=== PATIENT | male | born 1960 | race Caucasian/White ===

== ENCOUNTER 2019-01-07 10:19 | Emergency (ER) | payer OTHER ==
--- NOTE | 2019-01-07 10:23 | ERPHSYRPT ---
- History of Present Illness Time Seen by Provider: 01/07/19 10:20 Source: patient, family, old records Exam Limitations: no limitations Physician History: PT IS A 58 Y/O MALE HERE WITH C/O " I HAVE THIS LUMP IN MY THROAT AND I HAVE SPIT UP 4 CUPS OF SALIVA." PT REPORTS CHRONIC ESOPHAGEAL ISSUES REQUIRING DILATION AT [facility]. HE HAS HAD BARIUM SWALLOW STUDY RECENTLY. + WEIGHT LOSS 30 LBS OVER 1 YR. REPORTS HE FEELS LIKE HE HAS A LUMP IN HIS THROAT AND SALIVA HE JUST SWALLOWED COMES BACK UP. NO EXERTIONAL CP/SOB/N/V/FEVER/CHILLS/DYSURIA/ HEMATURIA. REPORTS CHRONIC ED LQ ABD PAIN THAT IS CRAMPY IN NATURE AND IS PRESENT "EVERY MORNING UNTIL I GO TO THE BATHROOM AND GET SOME FOOD INTO ME." REPORTS RECENT USE OF LAXATIVES "THAT BARIUM HAS ME STOPPED UP." NO HEMATOCHEZIA /DIARRHEA. REPORTS HX OF DIVERTICULITIS. NO DIAPHORESIS. NO EXACERBATING FACTORS PMHX: HIATAL HERNIA, ESOPHAGEAL ISSUES, DIVERTICULITIS PSHX HERNIA MEDS REVIEWED ALL DEMEROL +TOB DENIES ETOH./ILLICITS FHX NEG AORTA + HTN UNEMPLOYED Allergies/Adverse Reactions: meperidine HCl [From Demerol] Allergy (Verified 01/07/19 10:23) Home Medications: Fluticasone/Salmeterol [Advair 100-50 Diskus] 100 disk PO BID 05/31/15 [History] - Review of Systems Constitutional: No Symptoms, No Fever, No Chills, No Fatigue, No Lethargy, No Malaise, No Night Sweats, No Weakness, No Weight Loss Eyes: No Symptoms, No Discharge, No Eye Pain, No Eye Redness, No Itchy, No Photophobia, No Tearing, No Vision Changes, No Double Vision, No Foreign Body Sensation Ears, Nose, & Throat: No Symptoms, No Ear Pain, No Ear Discharge, No Hearing Changes, No Tinnitus, No Nose Congestion, No Nose Discharge, No Epistaxis, No Mouth Pain, No Mouth Swelling, No Throat Pain, No Throat Swelling, No Hoarse, No Painful Swallowing, No Stridor Respiratory: No Symptoms, No Cough, No Cyanosis, No Dyspnea, No Dyspnea on Exertion (BRIAN), No Stridor, No Wheezing Cardiac: No Symptoms, No Chest Pain, No Edema, No Palpitations, No Syncope, No Orthopnea Abdominal/Gastrointestinal: No Symptoms, Abdominal Pain, No Nausea, No Vomiting , No Diarrhea, No Constipation, No Hematemesis, No Hematochezia, No Melena, No Dysphagia, No Appetite Changes Genitourinary Symptoms: No Symptoms, No Dysuria, No Frequency, No Hematuria, No Hesitancy, No Incontinence, No Urgency, No Urinary Retention, No Flank Pain Musculoskeletal: No Symptoms, No Arthralgias, No Back Pain, No Neck Pain, No Deformity, No Fall, No Injury, No Joint Redness, No Joint Pain, No Joint Swelling, No Myalgias Skin: No Symptoms, No Cellulitis, No Decubiti, No Induration, No Pruritis, No Rash, No Skin Lesions, No Dryness Neurological: No Symptoms, No Dizziness, No Focal Weakness, No Gait Changes, No Headache, No Irritability, No Lethargy, No Paralysis, No Parasthesia, No Seizure , No Sensory Changes, No Speech Changes, No Tics, No Tremors, No Vertigo Psychological: No Symptoms, No Alcohol Abuse, No Drug Abuse, No Anxiety, No Depression, No Suicidal Ideations, No Homicidal Ideations, No Emotional Lability , No Hallucinations, No Memory Loss, No Mood Changes Endocrine: No Symptoms, No Polyuria, No Polydipsia, No Hair Changes, No Cold Intolerance, No Excessive Sweating, No Goiter Hematologic/Lymphatic: No Symptoms, No Anemia, No Blood Clots, No Easy Bleeding , No Gum Bleeding, No Easy Bruising, No Adenopathy Immunological/Allergic: No Symptoms All Other Systems: Reviewed and Negative - Past Medical History Pertinent Past Medical History: Yes Neurological History: No Pertinent History ENT History: No Pertinent History Cardiac History: No Pertinent History Respiratory History: Asthma Endocrine Medical History: No Pertinent History Musculoskeletal History: Fractures GI Medical History: Diverticulitis, Esophageal Disorder, Hernia, Polyps History: No Pertinent History Psycho-Social History: No Pertinent History Male Reproductive Disorders: No Pertinent History - Past Surgical History Past Surgical History: Yes Neuro Surgical History: No Pertinent History Cardiac: No Pertinent History Respiratory: No Pertinent History Gastrointestinal: Hernia Repair Genitourinary: No Pertinent History Musculoskeletal: Orthopedic Surgery Male Surgical History: No Pertinent History Other Surgical History: tear on colon repair, repair of shattered elbow lt, egd with dilatation - Social History Smoking Status: Former smoker How long have you smoked: 20 years Exposure to second hand smoke: Yes Drug Use: none - Nursing Vital Signs Nursing Vital Signs: Initial Vital Signs Temperature 98.6 F 01/07/19 10:29 Pulse Rate 68 01/07/19 10:29 Respiratory Rate 18 01/07/19 10:29 Blood Pressure 136/87 01/07/19 10:29 O2 Sat by Pulse Oximetry 98 01/07/19 10:29 Pain Scale Pain Intensity 0 - Physical Exam General Appearance: no apparent distress, mild distress, alert, other (ACTIVELY SPITTING) Eye Exam: PERRL/EOMI, eyes nml inspection, other (fundi normal ed), No scleral icterus, No pale conjunctivae, No photophobia, No EOM palsy/anisocoria Ears, Nose, Throat Exam: normal ENT inspection, TMs normal, pharynx normal, TM abnormal (L), other (uvula midline, floor of mouth soft), No moist mucous membranes, No dry mucous membranes, No TM abnormal (R), No pharyngeal erythema, No tonsillar exudate Neck Exam: normal inspection, non-tender, supple, full range of motion, No meningismus, No mass, No Brudzinski, No Kernig's, No carotid bruit, No JVD, No limited range of motion, No lymphadenopathy, No midline tenderness, No thyromegaly Respiratory Exam: normal breath sounds, lungs clear, airway intact, No chest tenderness, No respiratory distress, No diminished breath sounds, No accessory muscle use, No prolonged expirations, No crackles/rales, No rhonchi, No wheezing , No stridor, No pleural rub Cardiovascular Exam: regular rate/rhythm, normal heart sounds, normal peripheral pulses, capillary refill <2 sec, No murmur, No friction rub, No gallop, No tachycardia, No bradycardia, No irregular, No capillary refill 2-3 sec, No capillary refill >3 sec, No edema, No pulse deficit Gastrointestinal/Abdomen Exam: soft, normal bowel sounds, No tenderness, No distention, No mass, No guarding, No ecchymosis, No pulsatile mass, No rebound, No hernia, No hepatomegaly, No organomegaly, No splenomegaly, No bruit Male Genitalia Exam: normal genitalia Rectal Exam: deferred Back Exam: normal inspection, normal range of motion, other (neg slr ed, no sacral anesthesia, dtr 2/4 ed patella), No CVA tenderness, No vertebral tenderness, No rash, No decreased range of motion, No muscle spasm, No point tenderness Extremity Exam: normal inspection, normal range of motion, pelvis stable, No amputations, No contusions, No calf tenderness, No deformities, No lacerations, No parasthesia, No paralysis, No inflammation, No joint swelling, No limited range of motion, No pedal edema, No swelling, No tenderness Neurologic Exam: alert, oriented x 3, cooperative, 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, normal mood/affect, nml cerebellar function, nml station & gait, sensation nml, No motor deficits, No sensory deficit, No disoriented, No confusion, No agitation, No uncooperative, No intoxicated appearance, No depressed mood/affect , No motor weakness, No facial droop, No slurred speech, No aphasia, No dysarthria, No abnormal gait, No abnormal cerebellar tests, No abnormal mutuel machine operator II- XII, No EOM palsy Skin Exam: normal color, warm, dry, No rash, No petechiae, No jaundice, No abrasion, No cyanosis, No diaphoresis, No decubitus, No embolic lesions, No ecchymosis, No jaundice, No laceration, No mottled, No pale Lymphatic Exam: No adenopathy SpO2 Interpretation: normal O2 Delivery: Room Air - Course Nursing assessment & vital signs reviewed: Yes EKG Interpreted by Me: RATE (59), Sinus Rhythm, NORMAL AXIS, NORMAL QRS, NORMAL ST-T Ordered Tests: Active Orders 24 hr Category Date Time Status Services Host STAT Care 01/07/19 10:30 Active EKG-ER Only STAT Care 01/07/19 10:30 Active IV Insertion STAT Care 01/07/19 10:21 Active NPO (ED) STAT Care 01/07/19 10:30 Active ABDOMEN AND PELVIS W CONTRAST [CT] Stat Exams 01/07/19 11:33 Completed CHEST 1 VIEW (PORTABLE) Stat Exams 01/07/19 10:33 Completed CBC W DIFF Stat Lab 01/07/19 10:30 Completed CMP Stat Lab 01/07/19 10:30 Completed LIPASE Stat Lab 01/07/19 10:30 Completed Lactic Acid Stat Lab 01/07/19 10:50 Completed TROPONIN Q3H Lab 01/07/19 10:30 Completed TROPONIN Q3H Lab 01/07/19 13:45 Ordered TROPONIN Q3H Lab 01/07/19 16:45 Ordered TROPONIN Q3H Lab 01/07/19 19:45 Ordered TROPONIN Q3H Lab 01/07/19 22:45 Ordered UA W/RFX UR CULTURE Stat Lab 01/07/19 10:45 Completed Medication Summary Discontinued Medications Generic Name Dose Route Start Last Admin Trade Name Freq PRN Reason Stop Dose Admin Pantoprazole Sodium 40 mg 01/07/19 12:26 Protonix 40 Mg Iv IV 01/07/19 12:27 STAT ONE Lab/Rad Data: Laboratory Result Diagrams 01/07/19 10:30 01/07/19 10:30 Laboratory Results 01/07/19 01/07/19 01/07/19 Range/Units 10:50 10:45 10:30 WBC (4.0-10.5) K/mm3 RBC (4.1-5.6) M/mm3 Hgb (12.5-18.0) gm/dl Hct (42-50) % MCV (78-100) fl MCH (26-32) pg MCHC (32-36) g/dl RDW (11.5-14.0) % Plt Count (150-450) K/mm3 MPV (6-9.5) fl Gran % (36.0-66.0) % Eos # (Auto) (0-0.5) Absolute Lymphs (auto) (1.0-4.6) Absolute Monos (auto) (0.0-1.3) Lymphocytes % (24.0-44.0) % Monocytes % (0.0-12.0) % Eosinophils % (0.00-5.0) % Basophils % (0.0-0.4) % Absolute Granulocytes (1.4-6.9) Basophils # (0-0.4) Sodium (137-145) mmol/L Potassium (3.5-5.1) mmol/L Chloride (98-107) mmol/L Carbon Dioxide (22-30) mmol/L Anion Gap (5-15) MEQ/L BUN (9-20) mg/dL Creatinine (0.66-1.25) mg/dL Estimated GFR ML/MIN Glucose (74-106) mg/dL Lactic Acid 0.9 (0.4-2.0) Calcium (8.4-10.2) mg/dL Total Bilirubin (0.2-1.3) mg/dL AST (17-59) U/L ALT (0-50) U/L Alkaline Phosphatase (38-126) U/L Troponin I < 0.012 (0.000-0.034) ng/mL Serum Total Protein (6.3-8.2) g/dL Albumin (3.5-5.0) g/dL Lipase (23-300) U/L Urine Color DARK YELLOW (YELLOW) Urine Appearance CLOUDY (CLEAR) Urine pH 7.0 (5-6) Ur Specific [place] 1.021 (1.005-1.025) Urine Protein NEGATIVE (Negative) Urine Ketones NEGATIVE (NEGATIVE) Urine Blood NEGATIVE (0-5) Biju/ul Urine Nitrite NEGATIVE (NEGATIVE) Urine Bilirubin NEGATIVE (NEGATIVE) Urine Urobilinogen NEGATIVE (0-1) mg/dL Ur Leukocyte Esterase NEGATIVE (NEGATIVE) Urine WBC (Auto) NONE SEEN (0-5) /HPF Urine RBC (Auto) 0-2 (0-2) /HPF U Epithel Cells (Auto) NONE (FEW) /HPF Urine Bacteria (Auto) NONE (NEGATIVE) /HPF Amorphous Crystals MODERATE (NEGATIVE) /HPF Urine Mucus (Auto) SLIGHT (NEGATIVE) /HPF Urine Culture Reflexed NO (NO) Urine Glucose NEGATIVE (NEGATIVE) mg/dL 01/07/19 01/07/19 Range/Units 10:30 10:30 WBC 7.5 (4.0-10.5) K/mm3 RBC 5.01 (4.1-5.6) M/mm3 Hgb 15.6 (12.5-18.0) gm/dl Hct 45.5 (42-50) % MCV 90.8 (78-100) fl MCH 31.1 (26-32) pg MCHC 34.3 (32-36) g/dl RDW 13.0 (11.5-14.0) % Plt Count 272 (150-450) K/mm3 MPV 10.5 H (6-9.5) fl Gran % 67.9 H (36.0-66.0) % Eos # (Auto) 0.12 (0-0.5) Absolute Lymphs (auto) 1.56 (1.0-4.6) Absolute Monos (auto) 0.70 (0.0-1.3) Lymphocytes % 20.8 L (24.0-44.0) % Monocytes % 9.3 (0.0-12.0) % Eosinophils % 1.6 (0.00-5.0) % Basophils % 0.4 (0.0-0.4) % Absolute Granulocytes 5.10 (1.4-6.9) Basophils # 0.03 (0-0.4) Sodium 146 H (137-145) mmol/L Potassium 4.1 (3.5-5.1) mmol/L Chloride 108 H (98-107) mmol/L Carbon Dioxide 28 (22-30) mmol/L Anion Gap 14.2 (5-15) MEQ/L BUN 13 (9-20) mg/dL Creatinine 0.82 (0.66-1.25) mg/dL Estimated GFR > 60.0 ML/MIN Glucose 112 H (74-106) mg/dL Lactic Acid (0.4-2.0) Calcium 10.0 (8.4-10.2) mg/dL Total Bilirubin 0.70 (0.2-1.3) mg/dL AST 23 (17-59) U/L ALT 20 (0-50) U/L Alkaline Phosphatase 63 (38-126) U/L Troponin I (0.000-0.034) ng/mL Serum Total Protein 7.9 (6.3-8.2) g/dL Albumin 4.5 (3.5-5.0) g/dL Lipase 69 (23-300) U/L Urine Color (YELLOW) Urine Appearance (CLEAR) Urine pH (5-6) Ur Specific [place] (1.005-1.025) Urine Protein (Negative) Urine Ketones (NEGATIVE) Urine Blood (0-5) Biju/ul Urine Nitrite (NEGATIVE) Urine Bilirubin (NEGATIVE) Urine Urobilinogen (0-1) mg/dL Ur Leukocyte Esterase (NEGATIVE) Urine WBC (Auto) (0-5) /HPF Urine RBC (Auto) (0-2) /HPF U Epithel Cells (Auto) (FEW) /HPF Urine Bacteria (Auto) (NEGATIVE) /HPF Amorphous Crystals (NEGATIVE) /HPF Urine Mucus (Auto) (NEGATIVE) /HPF Urine Culture Reflexed (NO) Urine Glucose (NEGATIVE) mg/dL - Progress Progress: unchanged Progress Note: 01/07/19 11:29 ER PRELIM CXR IS NAD 01/07/19 12:27 CT A/P: DIFFUSE COLONIC DIVERTICULOSIS, SMALL HIATAL HERNIA WITH DISTAL ESOPH CIRCUMFERENTIAL WALL THICKENING, ENLARGED PROSTATE OTHERWISE NEG. PT SEES DR. KAPOOR GI AT [facility]. CALL TO DW HIM. WILL GIVE PROTONIX. STATES THIS HAS HAPPENED MANY TIMES. COULDNT DRINK COFFEE DIDNT TRY SOLIDS. I SUSPECT NEEDS TO BE DILATED. DOUBT PADDED PRODUCTS FINISHER CAUSE. OFFERED CT HEAD PT DECLINES [facility] OFFICE NO GI AVAIL TO TAKE CALL WILL CALL HOSPITAL 01/07/19 12:42 COTY GIBBS AT [facility] ACCEPTS ADMIT CARE TRANSFERRED TORRI FORTE COMPLETE FINDINGS REVIEWED WITH PT AND FAMILY ALL [facility] ANSWERED TO THEIR SATISFACTION 01/07/19 12:47 01/07/19 12:48 Counseled pt/family regarding: drug and/or alcohol abuse, lab results, diagnosis , need for follow-up, rad results, smoking cessation - Departure Departure Disposition: Transfer Clinical Impression: Dysphagia Condition: Stable Critical Care Time: No Referrals: DELLA SU [Primary Care Provider] -
[2019-01-07 10:43] LABS: BASOPHIL % 0.4 % (0.0-0.4); Basophil (Absolute #) 0.03 (0-0.4); Eosinophil % 1.6 % (0.00-5.0); Eosinophil (Absolute #) 0.12 (0-0.5); Hematocrit 45.5 % (42-50); Hemoglobin 15.6 gm/dl (12.5-18.0); Lymphocyte (Absolute #) 1.56 (1.0-4.6); Lymphocytes % 20.8 % (24.0-44.0); Mean Cell Volume 90.8 fl (78-100); Mean Corpuscular Hemoglobin 31.1 pg (26-32); Mean Corpuscular Hgb Concent. 34.3 g/dl (32-36); Mean Platelet Volume 10.5 fl (6-9.5); Monocytes % 9.3 % (0.0-12.0); Neutrophil % 67.9 % (36.0-66.0); Platelet Count 272 K/mm3 (150-450); Red Blood Count 5.01 M/mm3 (4.1-5.6); White Blood Count 7.5 K/mm3 (4.0-10.5)
[2019-01-07 11:01] LABS: ALBUMIN 4.5 g/dL (3.5-5.0); ALKALINE PHOSPHATASE 63 U/L (38-126); ANION GAP 14.2 MEQ/L (5-15); BLOOD UREA NITROGEN 13 mg/dL (9-20); CHLORIDE 108 mmol/L (98-107); Carbon Dioxide 28 mmol/L (22-30); Creatinine 1 0.82 mg/dL (0.66-1.25); Glucose 112 mg/dL (74-106); LIPASE 69 U/L (23-300); Potassium 4.1 mmol/L (3.5-5.1); SGOT/AST 23 U/L (17-59); SGPT/ALT 20 U/L (0-50); SODIUM 146 mmol/L (137-145); Total Protein 7.9 g/dL (6.3-8.2)
[2019-01-07 11:10] LABS: Appearance CLOUDY (CLEAR); Bilirubin NEGATIVE (NEGATIVE); Blood NEGATIVE Ery/ul (0-5); Glucose NEGATIVE (NEGATIVE); Ketones NEGATIVE (NEGATIVE); Leukocyte Esterase NEGATIVE (NEGATIVE); Mucus SLIGHT /HPF (NEGATIVE); Nitrite NEGATIVE (NEGATIVE); Protein,Urine Dip NEGATIVE (Negative); RBC 0-2 /HPF (0-2); Specific Gravity 1.021 (1.005-1.025); Urobilinogen NEGATIVE mg/dL (0-1); WBC NONE SEEN /HPF (0-5)
[2019-01-07 11:11] LABS: Amourphous Crystal MODERATE /HPF (NEGATIVE)
--- NOTE | 2019-01-07 11:29 | XRAY ---
Indication: Chest pain. Nausea. Comparison: April 16, 2017. Portable chest again demonstrates normal heart and lungs with incidental calcified granulomas. Bony thorax intact. No new/acute findings.
--- NOTE | 2019-01-07 12:18 | XRAY ---
Indication: Nausea and vomiting. Multiple contiguous axial images obtained through the abdomen and pelvis using 80 cc Isovue 370 contrast only. Comparison: None Lung bases demonstrates partially visualized right lower lobe bullae and minimal bibasilar fibrosis/scarring. No infiltrate or effusion. Heart is not enlarged. Small hiatal hernia. Visualized distal esophagus demonstrates circumferential wall thickening possibly esophagitis. Noncontrasted stomach and bowel loops appear nonobstructed. Normal appendix. Diffuse scattered colonic diverticulosis, several appearing with dense concretions presumed from previous barium exam. No free fluid/air. Remaining liver, gallbladder, pancreas, spleen, adrenal glands, kidneys, ureters, and bladder appear unremarkable. Enlarged prostate gland impresses on the base of the bladder. Mild scattered aortoiliac calcifications. No AAA or pathologic retroperitoneal lymphadenopathy. Osseous structures intact with mild degenerative changes throughout the thoracolumbar spine. Incidental L3 vertebral hemangioma. Impression: 1. Diffuse colonic diverticulosis without diverticulitis. 2. Small hiatal hernia with distal esophageal circumferential wall thickening. Rule out reflux esophagitis. 3. Enlarged prostate gland. 4. Remaining CT abdomen/pelvis without contrast exam is negative. CTDI 10.77
[2019-01-07] MEDS ORDERED: PROTONIX 40 MG IV IV ONE ×2 (12:26→12:40)
[2019-01-07 12:54] VITALS: BP 135/90; PULSE 75; O2SAT 93
== END 2019-01-07 13:19 | disposition short-term general hospital (02) ==
LOC: ED 10:19
DX: R13.10 Dysphagia, unspecified (principal)
CPT/HCPCS: 36000; 36415; 71045; 74177; 80053; 81001; 83605; 83690; 84484; 85025; 93005; 93041; 96374; 99285

== ENCOUNTER 2021-02-23 13:19 | Emergency (ER) | payer OTHER ==
--- NOTE | 2021-02-23 13:58 | XRAY ---
Indication: Pain. Comparison: None 3 view right shoulder demonstrates mild acromioclavicular and mild/moderate glenohumeral degenerative arthropathy. No other bony, articular, or soft tissue abnormalities.
[2021-02-23] MEDS ORDERED: TORAdol 30 mg Injection IM ONE (14:02)
[2021-02-23] MEDS ORDERED: TORAdol 30 mg Injection ONE (14:02)
--- NOTE | 2021-02-23 14:02 | ERPHSYRPT ---
- History of Present Illness Time Seen by Provider: 02/23/21 13:25 Source: patient Exam Limitations: no limitations Patient Subjective Stated Complaint: pt here for right shoulder pain off and on for 6 months, no injury. Triage Nursing Assessment: pt alert, resp easy , skin w/d/p. has full range of motion to right shoulder, no selling noted , Physician History: Patient is a 60-year-old male presents to our ED for evaluation of right shoulder pain that has been ongoing for approximately 6 months. Pain has been intermittent for the past 6 months. No trauma or fevers. Pain described as an ache that is localized. With shoulder flexion or abduction beyond 90 degrees. No associated numbness tingling or weakness. No trauma. No fever. No associated chest pain or shortness of breath. No nausea vomiting or diaph oresis. Patient voices no other complaints or concerns at this time. Occurred: other (6 months ago) Method of Injury: unknown Quality: constant Severity of Pain-Max: moderate Severity of Pain-Current: mild Extremities Pain Location: shoulder: right Modifying Factors: Improves With: movement Associated Symptoms: none Allergies/Adverse Reactions: meperidine HCl [From Demerol] Allergy (Verified 02/23/21 13:39) Home Medications: Fluticasone/Salmeterol [Advair 100-50 Diskus] 100 disk PO BID 05/31/15 [History] Hx Influenza Vaccination/Date Given: No Hx Pneumococcal Vaccination/Date Given: No Immunizations Up to Date: Yes Travel Risk - International Travel Have you traveled outside of the country in past 3 weeks: No - Coronavirus Screening Are you exhibiting any of the following symptoms?: No Close contact with a COVID-19 positive Pt in past 14-21 Days: No - Vaccine Status Have you recieved a Covid-19 vaccination: No - Review of Systems Constitutional: No Symptoms, No Fever, No Chills Eyes: No Symptoms Ears, Nose, & Throat: No Symptoms Respiratory: No Symptoms, No Cough, No Dyspnea Cardiac: No Symptoms, No Chest Pain, No Edema, No Syncope Abdominal/Gastrointestinal: No Symptoms, No Abdominal Pain, No Nausea, No Vomiting, No Diarrhea Genitourinary Symptoms: No Symptoms, No Dysuria Musculoskeletal: No Symptoms, No Back Pain, No Neck Pain Skin: No Symptoms, No Rash Neurological: No Symptoms, No Dizziness, No Focal Weakness, No Sensory Changes Psychological: No Symptoms Endocrine: No Symptoms Hematologic/Lymphatic: No Symptoms Immunological/Allergic: No Symptoms All Other Systems: Reviewed and Negative - Past Medical History Pertinent Past Medical History: Yes Neurological History: No Pertinent History ENT History: No Pertinent History Cardiac History: No Pertinent History Respiratory History: Asthma Endocrine Medical History: No Pertinent History Musculoskeletal History: Fractures GI Medical History: Diverticulitis, Polyps, Hernia, Esophageal Disorder History: No Pertinent History Psycho-Social History: No Pertinent History Male Reproductive Disorders: No Pertinent History - Past Surgical History Past Surgical History: Yes Neuro Surgical History: No Pertinent History Cardiac: No Pertinent History Respiratory: No Pertinent History Gastrointestinal: Hernia Repair Genitourinary: No Pertinent History Musculoskeletal: Orthopedic Surgery Male Surgical History: No Pertinent History Other Surgical History: tear on colon repair, repair of shattered elbow lt, egd with dilatation - Social History Smoking Status: Former smoker How long have you smoked: 20 years Exposure to second hand smoke: Yes Drug Use: none Patient Lives Alone: No - Nursing Vital Signs Nursing Vital Signs: Initial Vital Signs Temperature 97.2 F 02/23/21 13:19 Pulse Rate 58 L 02/23/21 13:19 Respiratory Rate 18 02/23/21 13:19 Blood Pressure 133/96 02/23/21 13:19 O2 Sat by Pulse Oximetry 96 02/23/21 13:19 Pain Scale Pain Intensity 7 - Physical Exam General Appearance: no apparent distress, alert Eyes, Ears, Nose, Throat Exam: moist mucous membranes Neck Exam: normal inspection, non-tender, supple, full range of motion Cardiovascular/Respiratory Exam: chest non-tender, normal breath sounds, regular rate/rhythm, no respiratory distress Abdominal Exam: non-tender, soft, No guarding Back Exam: normal inspection, normal range of motion, No vertebral tenderness Shoulder Exam: normal inspection, no evidence of injury, normal ROM (Range of motion is within normal limits. However patient experiences pain upon shoulder flexion and abduction. Pain occurs when motion reaches 90 degrees or higher. Extremities neurovascular intact distally. Compartments are soft. Cap refill less than 2 seconds. Radial pulses palpable. Median) Elbow/Forearm Exam: normal inspection, non-tender, no evidence of injury, normal ROM Wrist Exam: normal inspection, non-tender, no evidence of injury, normal ROM Hand Exam: normal inspection, non-tender, no evidence of injury, normal ROM Neuro/Tendon Exam: normal sensation, normal motor functions Mental Status Exam: alert, oriented x 3, cooperative Skin Exam: normal color, warm, dry SpO2 Interpretation: normal SpO2: 96 O2 Delivery: Room Air - Course Nursing assessment & vital signs reviewed: Yes - Radiology Exams Shoulder X-ray Interpretation: Teleradiologist Report (3 views right shoulder demonstrates mild acromioclavicular and mild/moderate glenohumeral degenerative arthropathy. No other bony articular or soft tissue abnormalities.) Ordered Tests: Active Orders 24 hr Category Date Time Status SHOULDER Stat Exams 02/23/21 13:35 Completed Medication Summary Discontinued Medications Generic Name Dose Route Start Last Admin Trade Name Freq PRN Reason Stop Dose Admin Ketorolac Tromethamine 30 mg 02/23/21 14:02 Ketorolac Tromethamine 30 Mg/Ml Inj IM 02/23/21 14:03 STAT ONE - Progress Progress: improved Progress Note: Patient reassessed. Pain improved with Toradol administration. Patient received a shoulder sling for comfort. Patient received a referral to orthopedics for further evaluation and treatment. X-rays negative for acute pathology. X-ray reveals mild acromioclavicular and mild to moderate glenohumeral degenerative arthropathy. No other bony articular or soft tissue abnormalities observed. A prescription for Toradol was provided to patient. He understands that he is not to take any other NSAIDs with this medication. Patient agrees to follow-up as discussed. He voices no other complaints or concerns at this time. Portions of this note were created with voice recognition technology. There may be grammatical, spelling, punctuation or sound alike errors 02/23/21 14:09 Counseled pt/family regarding: diagnosis, rad results - Departure Departure Disposition: Home Clinical Impression: Shoulder pain, Shoulder arthritis, Acromioclavicular joint arthritis Condition: Stable Critical Care Time: No Referrals: DELLA MACEDO [Primary Care Provider] - Follow up/PCP as directed Additional Instructions: Discharge/Care Plan KATHERINEROSIOREBECCASARAH K was seen on 02/23/21 in the Emergency Room. The patient was counseled regarding Diagnosis,Lab results, Imaging studies, need for follow up and when to return to the Emergency Room. Prescriptions given: Discharge Note I have spoken with the patient and/or caregivers. I have explained the patient's condition, diagnosis and treatment plan based on the information available to me at this time. I have answered the patient's and/or caregiver's questions and addressed any concerns. The patient and/or caregivers have as good understanding of the patient's diagnosis, condition and treatment plan as can be expected at this point. The vital signs have been stable. The patient's condition is stable and appropriate for discharge from the emergency department. The patient will pursue further outpatient evaluation with the primary care physician or other designated or consulting physician as outlined in the discharge instructions. The patient and/or caregivers are agreeable to this plan of care and follow-up instructions have been explained in detail. The patient and/or caregivers have received these instruction. The patient/and or caregivers are aware that any significant change in condition or worsening of symptoms should prompt an immediate return to this or the closest emergency department or call 911. Prescriptions: Ketorolac Tromethamine [Toradol] 10 mg PO TID 5 Days #15 tablet Outpatient Orders: Ortho Referral Time Frame: 1 Day, Facility: [facility], Location: [facility]
[2021-02-23 14:04] VITALS: BP 133/90; PULSE 60
[2021-02-23 14:09] VITALS: O2SAT 96
== END 2021-02-23 14:24 | disposition home or self-care (01) ==
LOC: ED 13:19
DX: M19.011 Primary osteoarthritis, right shoulder (principal); M25.511 Pain in right shoulder
CPT/HCPCS: 73030; 96372; 99284; J1885

== ENCOUNTER 2023-04-02 10:42 | Emergency (ER) | payer OTHER ==
[2023-04-02] MEDS ORDERED: Augmentin 875-125 Tablet PO ONE (11:00)
[2023-04-02] MEDS ORDERED: Augmentin 875-125 Tablet ONE (11:02)
[2023-04-02 11:05] VITALS: BP 125/63; PULSE 77; RESP 20; TEMP 97.1
--- NOTE | 2023-04-02 11:05 | ERPHSYRPT ---
- History of Present Illness Time Seen by Provider: 04/02/23 11:03 Source: patient Physician History: 62-year-old male presents to our ED for evaluation of dental pain. Patient states the dental pain has been ongoing for some time approximately 1 week. However this morning pain was significantly worse. No trauma no fever. Patient has a dentist that has pulled his teeth out in the past. He will call today for follow-up appointment. Pain described as an ache that is localized. No radiati on. Pain reproduced with percussion to the involved tooth. Pain improved with rest. No associated headache. No nausea no vomiting no chest pain or shortness of breath. Patient voices no other complaints or concerns at this time. Portions of this note were created with voice recognition technology. There may be grammatical, spelling, punctuation or sound alike errors DM Timing/Duration: today Severity: moderate Modifying Factors: Improves With: movement Associated Symptoms: denies symptoms Allergies/Adverse Reactions: meperidine HCl [From Demerol] Allergy (Verified 03/15/21 13:48) Muscle Aches tightness of muscles Home Medications: Fluticasone/Salmeterol [Advair 100-50 Diskus] 100 disk PO BID 05/31/15 [History] Albuterol Common Canister [Ventolin Common Canister] 1 puff IH DAILY PRN PRN 03/15/21 [History] Montelukast Sodium 10 mg [Singulair 10 MG] 10 mg PO QPM 03/15/21 [History] Hx Influenza Vaccination/Date Given: No Hx Pneumococcal Vaccination/Date Given: No Travel Risk - Vaccine Status Have you recieved a Covid-19 vaccination: No - Review of Systems Constitutional: No Symptoms, No Fever, No Chills Eyes: No Symptoms Ears, Nose, & Throat: No Symptoms Respiratory: No Symptoms, No Cough, No Dyspnea Cardiac: No Symptoms, No Chest Pain, No Edema, No Syncope Abdominal/Gastrointestinal: No Symptoms, No Abdominal Pain, No Nausea, No Vomiting, No Diarrhea Genitourinary Symptoms: No Symptoms, No Dysuria Musculoskeletal: No Symptoms, No Back Pain, No Neck Pain Skin: No Symptoms, No Rash Neurological: No Symptoms, No Dizziness, No Focal Weakness, No Sensory Changes Psychological: No Symptoms Endocrine: No Symptoms Hematologic/Lymphatic: No Symptoms Immunological/Allergic: No Symptoms All Other Systems: Reviewed and Negative - Past Medical History Pertinent Past Medical History: Yes Neurological History: No Pertinent History ENT History: No Pertinent History Cardiac History: No Pertinent History Respiratory History: Asthma Endocrine Medical History: No Pertinent History Musculoskeletal History: Osteoarthritis GI Medical History: Diverticulitis, Polyps, Hernia, Esophageal Disorder History: No Pertinent History Psycho-Social History: No Pertinent History Male Reproductive Disorders: No Pertinent History Other Medical History: ADVAIR, SINGULARE, ALBUTERAL, FRACTURE OF C-SPINE AT AGE 17 - Past Surgical History Past Surgical History: Yes Neuro Surgical History: No Pertinent History Cardiac: No Pertinent History Respiratory: No Pertinent History Gastrointestinal: Hernia Repair Genitourinary: No Pertinent History Musculoskeletal: Orthopedic Surgery Male Surgical History: No Pertinent History Other Surgical History: tear on colon repair, repair of shattered elbow right with bone graft from hip, egd with dilatation - Social History Smoking Status: Former smoker How long have you smoked: 20 years Exposure to second hand smoke: Yes Drug Use: none Patient Lives Alone: No - Physical Exam General Appearance: no apparent distress, alert Eye Exam: PERRL/EOMI, eyes nml inspection Ears, Nose, Throat Exam: normal ENT inspection, TMs normal, pharynx normal, moist mucous membranes, other (Tooth #27 is fractured and carious. Percussion to this tooth reproduces patient's symptoms. Patient has several other missing and carious teeth. Dental exam otherwise nonremarkable) Neck Exam: normal inspection, non-tender, supple, full range of motion Respiratory Exam: normal breath sounds, lungs clear, No respiratory distress Cardiovascular Exam: regular rate/rhythm, normal heart sounds, normal peripheral pulses Gastrointestinal/Abdomen Exam: soft, normal bowel sounds, No tenderness, No mass Back Exam: normal inspection, normal range of motion, No CVA tenderness, No vertebral tenderness Extremity Exam: normal inspection, normal range of motion, pelvis stable Neurologic Exam: alert, oriented x 3, cooperative, normal mood/affect, nml cerebellar function, nml station & gait, sensation nml, No motor deficits Skin Exam: normal color, warm, dry, No rash Lymphatic Exam: No adenopathy SpO2 Interpretation: normal SpO2: 97 O2 Delivery: Room Air - Course Nursing assessment & vital signs reviewed: Yes - Progress Progress: improved Progress Note: Patient declined pain medication. He received a dose of Augmentin in our ED. A prescription for the same was forwarded to patient's pharmacy. Patient voices no other complaints or concerns at this time. He will follow-up with his dentist as scheduled. Portions of this note were created with voice recognition technology. There may be grammatical, spelling, punctuation or sound alike errors Complexity problem addressed is low acute uncomplicated No critical care time Complexity of data reviewed and analyzed is none. Diagnosis made based on history and physical examination. No specialized testing ordered Risk of complication and or risk of morbidity/mortality of patient management is moderate. A prescription for Augmentin forwarded to patient's pharmacy. Patient discharged home. Vital stable. Time spent to discharge patient is approximately 15 minutes. Plan of care established for shared decision making. No social determinants of health present impede follow-up. Patient disclaimer portions of this note were created with voice recognition technology. There may be grammatical, spelling, punctuation or sound alike errors 04/02/23 11:05 Counseled pt/family regarding: diagnosis, need for follow-up - Departure Departure Disposition: Home Clinical Impression: Pain, dental, Dental abscess, Carious teeth Condition: Stable Critical Care Time: No Referrals: STEVE FARFAN DO [Primary Care Provider] - Follow up/PCP as directed Additional Instructions: Discharge/Care Plan SARAH LOWRY was seen on 04/02/23 in the Emergency Room. The patient was counseled regarding Diagnosis,Lab results, Imaging studies, need for follow up and when to return to the Emergency Room. Prescriptions given: Discharge Note I have spoken with the patient and/or caregivers. I have explained the patient's condition, diagnosis and treatment plan based on the information available to me at this time. I have answered the patient's and/or caregiver's questions and addressed any concerns. The patient and/or caregivers have as good understanding of the patient's diagnosis, condition and treatment plan as can be expected at this point. The vital signs have been stable. The patient's condition is stable and appropriate for discharge from the emergency department. The patient will pursue further outpatient evaluation with the primary care physician or other designated or consulting physician as outlined in the discharge instructions. The patient and/or caregivers are agreeable to this plan of care and follow-up instructions have been explained in detail. The patient and/or caregivers have received these instruction. The patient/and or caregivers are aware that any significant change in condition or worsening of symptoms should prompt an immediate return to this or the closest emergency department or call 911. Prescriptions: Amox Tr/Potass Clav. 875 mg [Augmentin 875-125 Tablet] 875 mg PO BID 7 Days #14 tablet
[2023-04-02 11:08] VITALS: O2SAT 97
== END 2023-04-02 11:40 | disposition home or self-care (01) ==
LOC: ED 10:42
DX: K04.7 Periapical abscess without sinus (principal); K02.9 Dental caries, unspecified; K08.89 Other specified disorders of teeth and supporting structures; Z79.899 Other long term (current) drug therapy; Z28.310 Unvaccinated for COVID-19
CPT/HCPCS: 99281; A9270-GY

== ENCOUNTER 2024-01-03 09:57 | Emergency (ER) | payer MEDICARE, OTHER ==
--- NOTE | 2024-01-03 10:02 | ERPHSYRPT ---
- History of Present Illness Time Seen by Provider: 01/03/24 10:02 Source: patient Exam Limitations: no limitations Timing/Duration: day(s) (3 to 4 days), worse Method of Injury: other (No injury) Quality: aching Back Pain Location: paraspinous muscles (Bilateral cervical spine level and bilateral posterior shoulders) Severity of Pain-Max: moderate Severity of Pain-Current: moderate Modifying Factors: Improves With: movement (Worsens) Associated Symptoms: muscle spasms, No loss of bowel control Previous symptoms: same symptoms as today, no recent treatment Allergies/Adverse Reactions: meperidine HCl [From Demerol] Allergy (Verified 03/15/21 13:48) Muscle Aches tightness of muscles Home Medications: Fluticasone Propion/Salmeterol [Advair 100-50 Diskus] 100 disk PO BID 05/31/15 [History] Albuterol Common Canister [Ventolin Common Canister] 1 puff IH DAILY PRN PRN 03/15/21 [History] Montelukast Sodium 10 mg [Singulair 10 MG] 10 mg PO QPM 03/15/21 [History] Hx Tetanus, Diphtheria Vaccination/Date Given: No Hx Influenza Vaccination/Date Given: No Hx Pneumococcal Vaccination/Date Given: No Travel Risk - International Travel Have you traveled outside of the country in past 3 weeks: No - Emerging Infectious Disease Are you exhibiting symptoms associated with any current EIDs: No - Review of Systems Constitutional: No Symptoms Eyes: No Symptoms Ears, Nose, & Throat: No Symptoms Respiratory: No Symptoms Cardiac: No Symptoms Abdominal/Gastrointestinal: No Symptoms Genitourinary Symptoms: No Symptoms Musculoskeletal: Neck Pain (Bilateral paraspinous muscles and bilateral posterior shoulder muscles) Skin: No Symptoms Neurological: No Symptoms Psychological: No Symptoms Endocrine: No Symptoms Hematologic/Lymphatic: No Symptoms Immunological/Allergic: No Symptoms All Other Systems: Reviewed and Negative - Past Medical History Pertinent Past Medical History: Yes Neurological History: No Pertinent History ENT History: No Pertinent History Cardiac History: No Pertinent History Respiratory History: Asthma Endocrine Medical History: No Pertinent History Musculoskeletal History: Osteoarthritis GI Medical History: Diverticulitis, Polyps, Hernia, Esophageal Disorder History: No Pertinent History Psycho-Social History: No Pertinent History Male Reproductive Disorders: No Pertinent History Other Medical History: ADVAIR, SINGULARE, ALBUTERAL, FRACTURE OF C-SPINE AT AGE 17 - Past Surgical History Past Surgical History: Yes Neuro Surgical History: No Pertinent History Cardiac: No Pertinent History Respiratory: No Pertinent History Gastrointestinal: Hernia Repair Genitourinary: No Pertinent History Musculoskeletal: Orthopedic Surgery Male Surgical History: No Pertinent History Other Surgical History: tear on colon repair, repair of shattered elbow right with bone graft from hip, egd with dilatation - Social History Smoking Status: Former smoker How long have you smoked: 20 years Exposure to second hand smoke: Yes Drug Use: none Patient Lives Alone: No - Nursing Vital Signs Nursing Vital Signs: Initial Vital Signs Temperature 97.8 F 01/03/24 10:52 Pulse Rate 60 01/03/24 10:52 Respiratory Rate 18 01/03/24 10:52 Blood Pressure 167/75 01/03/24 10:52 O2 Sat by Pulse Oximetry 97 01/03/24 10:52 Pain Scale Pain Intensity [Left] 8 Pain Intensity 8 - Physical Exam General Appearance: no apparent distress, alert, anxiety, thin Eye Exam: PERRL/EOMI, eyes nml inspection Ears, Nose, Throat Exam: normal ENT inspection, moist mucous membranes Neck Exam: normal inspection, non-tender, supple, full range of motion Respiratory Exam: airway intact, No chest tenderness, No respiratory distress Gastrointestinal Exam: No tenderness Rectal Exam: not done Back Exam: normal inspection, normal range of motion, No CVA tenderness, No vertebral tenderness Extremity Exam: normal inspection, normal range of motion, pelvis stable Neurologic Exam: alert, oriented x 3, cooperative, parachute officer II-XII nml as tested, nml cerebellar function, nml station & gait, sensation nml Skin Exam: normal color, warm, dry Lymphatic Exam: adenopathy SpO2 Interpretation: normal O2 Delivery: Room Air - Course Nursing assessment & vital signs reviewed: Yes Ordered Tests: Medication Summary Discontinued Medications Generic Name Dose Route Start Last Admin Trade Name Freq PRN Reason Stop Dose Admin Methylprednisolone Sodium 0 mg 01/03/24 11:15 Succinate 125 mg/ Sterile IM 01/03/24 11:16 Water 2 ml STAT ONE Orphenadrine Citrate 60 mg 01/03/24 11:16 Orphenadrine Citrate 60 Mg/2 Ml Vial IM 01/03/24 11:17 STAT ONE Oxycodone/Acetaminophen 1 tab 01/03/24 11:16 Oxycodone Hcl/Apap 5 Mg/325 Mg Tablet PO 01/03/24 11:17 STAT STA - Progress Progress: improved, pain not gone completely Progress Note: 01/03/24 11:20 My medical decision making and the assignment of low complexity to this patient's medical issue today is based on review of the patient's past medical history, review of the patient's medication list, reviewed patient drug allergy list, history present illness and physical findings on examination. No laboratory radiographic studies are necessary in the workup of this patient. Counseled pt/family regarding: diagnosis, need for follow-up Medical Desision Making - Diagnostic Testing Diagnostic test were ordered, analyzed, and reviewed by me: No - Risk of complications The pt has a mod risk of morbidity or mortality based on: Need for prescription drug management - Departure Departure Disposition: Home Clinical Impression: Strain of neck muscle, Musculoskeletal pain Condition: Stable Critical Care Time: No Referrals: STEVE FARFAN DO [Primary Care Provider] - Follow up/PCP as directed Additional Instructions: May alternate ice and heat to areas of tenderness 3 times a day for the next 72 hours. Do not apply directly on skin. Take your medications as prescribed. Call your primary care provider today, 01/03/2024, to make arrangements for follow-up appointment for further evaluation management and to be seen in the next 3 to 5 days Prescriptions: Prednisone 10 mg [Deltasone 10 mg] 10 mg PO TID #12 tablet Orphenadrine Citrate 100 mg [Norflex 100 MG Tablet] 100 mg PO BID #10 tab
[2024-01-03 10:56] VITALS: RESP 18; TEMP 97.8
[2024-01-03 11:23] VITALS: BP 145/84; PULSE 64; O2SAT 99
[2024-01-03] MEDS: Norflex 60 MG/2 ML IM ONE (12:23)
[2024-01-03] MEDS ORDERED: PERCOCET TABLET 5/325MG ONE (12:25)
[2024-01-03] MEDS: PERCOCET TABLET 5/325MG PO STA (12:30)
[2024-01-03] MEDS ORDERED: Sterile H2O 10 ml IJ ONE (12:31)
[2024-01-03] MEDS ORDERED: solu-MEDROL ONE (12:31)
[2024-01-03] MEDS: solu-MEDROL 125 MG, Sterile H2O 10 ml 2 ML IM ONE (12:32)
== END 2024-01-03 12:39 | disposition home or self-care (01) ==
LOC: ED 09:57
DX: S16.1XXA Strain of muscle, fascia and tendon at neck level, initial encounter (principal); M54.2 Cervicalgia; M25.511 Pain in right shoulder; M25.512 Pain in left shoulder; Z79.52 Long term (current) use of systemic steroids; Z79.899 Other long term (current) drug therapy
CPT/HCPCS: 99283; J2919; A9270-GY

== ENCOUNTER 2024-05-20 21:12 | Observation (INO) | payer MEDICARE ==
--- NOTE | 2024-05-20 21:33 | ERPHSYRPT ---
- History of Present Illness Time Seen by Provider: 05/20/24 21:20 Source: patient Exam Limitations: no limitations Patient Subjective Stated Complaint: pt states that he has been coughing, having a fever, and bodyaches for the past 2 days Triage Nursing Assessment: pt ambulated into the er; pt is axo x4; c/o cough; clear lung sounds in all lobes; dry hacking cough present; no respiratory distress present; pt c/o nasal drainage; pt states he coughs up clear phlegm; c/o bodyaches; pt states 8/10 pain to head; skin PDW; hypertensive Physician History: 64-year-old male history of asthma current smoker presents to emergency department for evaluation of shortness of breath that started today. Patient states that he has had a cough for the past several days. The cough has progressed to shortness of breath. No chest pain no nausea vomiting or diaphoresis. No other associated symptomology. Symptoms are progressive. Symptoms are moderate in intensity. Patient states that shortness of breath is worse with exertion. Symptoms improved with rest. Patient denies any significant cardiovascular history. No obvious sick contacts. No fever. No rash. 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 Patient otherwise feels well. at bedside. They voiced no other complaints or concerns at this time. Portions of this note were created with voice recognition technology. There may be grammatical, spelling, punctuation or sound alike errors Timing/Duration: today Severity: moderate Modifying Factors: Improves With: nothing Associated Symptoms: denies symptoms Allergies/Adverse Reactions: meperidine HCl [From Demerol] Allergy (Verified 05/20/24 21:17) Muscle Aches tightness of muscles Home Medications: Fluticasone Propion/Salmeterol [Advair 100-50 Diskus] 100 disk PO BID 05/31/15 [History] Albuterol Common Canister [Ventolin Common Canister] 1 puff IH DAILY PRN PRN 03/15/21 [History] Montelukast Sodium 10 mg [Singulair 10 MG] 10 mg PO QPM 03/15/21 [History] Hx Tetanus, Diphtheria Vaccination/Date Given: No Hx Influenza Vaccination/Date Given: No Hx Pneumococcal Vaccination/Date Given: No Travel Risk - International Travel Have you traveled outside of the country in past 3 weeks: No - Emerging Infectious Disease Are you exhibiting symptoms associated with any current EIDs: Yes Symptoms: Cough: New Onset, Fever, Headaches/Body Aches/ - Review of Systems Constitutional: No Symptoms, No Fever, No Chills Eyes: No Symptoms Ears, Nose, & Throat: No Symptoms Respiratory: No Symptoms, No Cough, No Dyspnea Cardiac: No Symptoms, No Chest Pain, No Edema, No Syncope Abdominal/Gastrointestinal: No Symptoms, No Abdominal Pain, No Nausea, No Vomiting, No Diarrhea Genitourinary Symptoms: No Symptoms, No Dysuria Musculoskeletal: No Symptoms, No Back Pain, No Neck Pain Skin: No Symptoms, No Rash Neurological: No Symptoms, No Dizziness, No Focal Weakness, No Sensory Changes Psychological: No Symptoms Endocrine: No Symptoms Hematologic/Lymphatic: No Symptoms Immunological/Allergic: No Symptoms All Other Systems: Reviewed and Negative - Past Medical History Pertinent Past Medical History: Yes Neurological History: No Pertinent History ENT History: No Pertinent History Cardiac History: No Pertinent History Respiratory History: Asthma Endocrine Medical History: No Pertinent History Musculoskeletal History: Osteoarthritis GI Medical History: Diverticulitis, Polyps, Hernia, Esophageal Disorder History: No Pertinent History Psycho-Social History: No Pertinent History Male Reproductive Disorders: No Pertinent History Other Medical History: ADVAIR, SINGULARE, ALBUTERAL, FRACTURE OF C-SPINE AT AGE 17 - Past Surgical History Past Surgical History: Yes Neuro Surgical History: No Pertinent History Cardiac: No Pertinent History Respiratory: No Pertinent History Gastrointestinal: Hernia Repair Genitourinary: No Pertinent History Musculoskeletal: Orthopedic Surgery Male Surgical History: No Pertinent History Other Surgical History: tear on colon repair, repair of shattered elbow right with bone graft from hip, egd with dilatation - Social History Smoking Status: Light tobacco smoker How long have you smoked: 20 years Exposure to second hand smoke: Yes Drug Use: none - Social Determinants of Health Will the patient participate in the screening: Declined to provide - Nursing Vital Signs Nursing Vital Signs: Initial Vital Signs Pulse Rate 72 05/20/24 21:18 Respiratory Rate 16 05/20/24 21:18 Blood Pressure 146/64 05/20/24 21:18 O2 Sat by Pulse Oximetry 96 05/20/24 21:18 Pain Scale Pain Intensity 4 - Physical Exam General Appearance: no apparent distress, alert Eye Exam: PERRL/EOMI, eyes nml inspection Ears, Nose, Throat Exam: normal ENT inspection, pharynx normal, moist mucous membranes Neck Exam: normal inspection, full range of motion Respiratory Exam: normal breath sounds, lungs clear, diminished breath sounds, other (Clear breath sounds but diminished bilaterally no obvious wheezing), No respiratory distress Cardiovascular Exam: regular rate/rhythm, normal heart sounds, normal peripheral pulses Gastrointestinal/Abdomen Exam: soft, normal bowel sounds, No tenderness, No mass Back Exam: normal inspection, normal range of motion, No CVA tenderness, No vertebral tenderness Extremity Exam: normal inspection, normal range of motion, pelvis stable Neurologic Exam: alert, oriented x 3, cooperative, normal mood/affect, sensation nml, No motor deficits Skin Exam: normal color, warm, dry, No rash Lymphatic Exam: No adenopathy SpO2 Interpretation: normal SpO2: 96 O2 Delivery: Room Air - Course Nursing assessment & vital signs reviewed: Yes EKG Interpreted by Me: RATE (70), Sinus Rhythm, NORMAL AXIS, NORMAL INTERVALS, NORMAL QRS Ordered Tests: Active Orders 24 hr Category Date Time Status Mechanics Supervisor STAT Care 05/20/24 21:33 Active EKG-ER Only STAT Care 05/20/24 21:32 Active IV Insertion STAT Care 05/20/24 21:32 Active Pulse Oximetry (ED) STAT Care 05/20/24 21:32 Active CHEST WITH CONTRAST [CT] Stat Exams 05/20/24 22:20 Completed BLOOD CULTURE Stat Lab 05/20/24 21:51 Received CBC W DIFF Stat Lab 05/20/24 21:41 Completed CMP Stat Lab 05/20/24 21:41 Completed D-DIMER QUANTITATIVE Stat Lab 05/20/24 21:41 Completed TROPONIN Q4H Lab 05/20/24 21:45 Completed TROPONIN Q4H Lab 05/21/24 01:45 Ordered TROPONIN Q4H Lab 05/21/24 05:45 Ordered Respiratory Therapy Assessment DAILY RT 05/20/24 22:23 Active Respiratory Therapy Consult ONCE RT 05/20/24 22:19 Active Transfer Order Routine Transfer 05/21/24 Ordered Medication Summary Generic Name Dose Route Start Last Admin Trade Name Freq PRN Reason Stop Dose Admin Ceftriaxone Sodium 2 gm in 100 mls @ 200 mls/hr 05/21/24 00:28 Rocephin 2 Gm/100 Ml Nacl IV 05/21/24 00:57 STAT ONE Azithromycin 500 mg in 250 mls @ 250 mls/hr 05/21/24 00:28 Zithromax 500 Mg/ 250 Ml Nacl Premix IV 05/21/24 01:27 STAT STA Discontinued Medications Generic Name Dose Route Start Last Admin Trade Name Rosa PRN Reason Stop Dose Admin Albuterol/Ipratropium 3 ml 05/20/24 21:32 05/20/24 22:41 Ipratropium/Albuterol Sulfate 3 Ml Ampul.Neb IH 05/20/24 21:33 3 ml STAT ONE Administration Albuterol/Ipratropium Confirm 05/20/24 22:01 Ipratropium/Albuterol Sulfate 3 Ml Ampul.Neb Administered 05/20/24 22:02 Dose 3 ml IH .STK-MED ONE Methylprednisolone Sodium 0 mg 05/20/24 21:32 05/20/24 21:48 Succinate 125 mg/ Sterile IV 05/20/24 21:33 125 mg Water 2 ml STAT ONE Administration Methylprednisolone Sodium Succinate Confirm 05/20/24 21:47 Methylprednis Sod Succ 125 Mg/2 Ml Vial Administered 05/20/24 21:48 Dose 125 mg .ROUTE .STK-MED ONE Sterile Water Confirm 05/20/24 21:47 Water For Injection,Sterile 10 Ml Vial Administered 05/20/24 21:48 Dose 10 ml IJ .STK-MED ONE Lab/Rad Data: Laboratory Result Diagrams 05/20/24 21:41 05/20/24 21:41 Laboratory Results 05/20/24 05/20/24 05/20/24 Range/Units 21:55 21:45 21:41 WBC (4.23-9.07) x10^3/uL RBC (4.63-6.08) x10^6/uL Hgb (13.7-17.5) g/dL Hct (40.1-51.0) % MCV (79.0-92.2) fL MCH (25.7-32.2) pg MCHC (32.3-36.5) g/dL RDW (11.6-14.4) % Plt Count (163-337) x10^3/uL MPV (9.4-12.4) fL Gran % (34.0-67.9) % Immature Gran % (Auto) (0.001-0.429) % Nucleat RBC Rel Count (0.00-0.2) % Eos # (Auto) (0.04-0.54) x10^3/uL Immature Gran # (Auto) (0.001-0.031) x10^3u/L Absolute Lymphs (auto) (1.32-3.57) x10^3/uL Absolute Monos (auto) (0.30-0.82) x10^3/uL Absolute Nucleated RBC (0.00-0.012) x10^3u/L Lymphocytes % (21.8-53.1) % Monocytes % (5.3-12.2) % Eosinophils % (0.8-7.0) % Basophils % (0.2-1.2) % Absolute Granulocytes (1.78-5.38) x10^3/uL Basophils # (0.01-0.08) x10^3/uL D-Dimer 1.26 H* (0.0-0.50) mg/L Sodium (135-145) mmol/L Potassium (3.5-5.1) mmol/L Chloride (98-107) mmol/L Carbon Dioxide (22-30) mmol/L Anion Gap (5-15) MEQ/L BUN (9-20) mg/dL Creatinine (0.66-1.25) mg/dL Estimated GFR ML/MIN Glucose (74-106) mg/dL Calcium (8.4-10.2) mg/dL Total Bilirubin (0.2-1.3) mg/dL AST (17-59) U/L ALT (0-50) U/L Alkaline Phosphatase (38-126) U/L Troponin I < 0.012 (0.000-0.033) ng/mL Serum Total Protein (6.3-8.2) g/dL Albumin (3.5-5.0) g/dL Influenza Type A Ag POSITIVE A (NEGATIVE) Influenza Type B Ag NEGATIVE (NEGATIVE) RSV (PCR) NEGATIVE (NEGATIVE) SARS-CoV-2 (PCR) NEGATIVE (NEGATIVE) Slides for Path Review 05/20/24 05/20/24 Range/Units 21:41 21:41 WBC 5.0 (4.23-9.07) x10^3/uL RBC 4.87 (4.63-6.08) x10^6/uL Hgb 14.4 (13.7-17.5) g/dL Hct 43.2 (40.1-51.0) % MCV 88.7 (79.0-92.2) fL MCH 29.6 (25.7-32.2) pg MCHC 33.3 (32.3-36.5) g/dL RDW 12.5 (11.6-14.4) % Plt Count 217 (163-337) x10^3/uL MPV 10.3 (9.4-12.4) fL Gran % 77.3 H (34.0-67.9) % Immature Gran % (Auto) 0.2 (0.001-0.429) % Nucleat RBC Rel Count 0.0 (0.00-0.2) % Eos # (Auto) 0 L (0.04-0.54) x10^3/uL Immature Gran # (Auto) 0.01 (0.001-0.031) x10^3u/L Absolute Lymphs (auto) 0.27 L (1.32-3.57) x10^3/uL Absolute Monos (auto) 0.83 H (0.30-0.82) x10^3/uL Absolute Nucleated RBC 0.00 (0.00-0.012) x10^3u/L Lymphocytes % 5.5 L (21.8-53.1) % Monocytes % 16.8 H (5.3-12.2) % Eosinophils % 0.0 L (0.8-7.0) % Basophils % 0.2 (0.2-1.2) % Absolute Granulocytes 3.83 (1.78-5.38) x10^3/uL Basophils # 0.01 (0.01-0.08) x10^3/uL D-Dimer (0.0-0.50) mg/L Sodium 137 (135-145) mmol/L Potassium 4.5 (3.5-5.1) mmol/L Chloride 101 (98-107) mmol/L Carbon Dioxide 20 L (22-30) mmol/L Anion Gap 20.1 H (5-15) MEQ/L BUN 26 H (9-20) mg/dL Creatinine 1.23 (0.66-1.25) mg/dL Estimated GFR 64.8 ML/MIN Glucose 99 (74-106) mg/dL Calcium 9.7 (8.4-10.2) mg/dL Total Bilirubin 0.80 (0.2-1.3) mg/dL AST 34 (17-59) U/L ALT 25 (0-50) U/L Alkaline Phosphatase 62 (38-126) U/L Troponin I (0.000-0.033) ng/mL Serum Total Protein 7.4 (6.3-8.2) g/dL Albumin 4.7 (3.5-5.0) g/dL Influenza Type A Ag (NEGATIVE) Influenza Type B Ag (NEGATIVE) RSV (PCR) (NEGATIVE) SARS-CoV-2 (PCR) (NEGATIVE) Slides for Path Review YES - Progress Progress: improved Progress Note: 64-year-old male history of asthma current smoker presents to our ED for evaluation of progressive shortness of breath and exertional dyspnea. Physical exam reveals diminished breath sounds. D-dimer positive. CTA negative for PE. Patient is influenza A positive. Patient received Solu-Medrol and a DuoNeb breathing treatment. Symptoms improved. Blood cultures obtained. Antibiotics administered. Patient observed. At rest patient began to feel short of breath. O2 sat 90% with a good pleth. We applied 2 L nasal cannula. O2 sat 95% at this time. Patient states he still feels short of breath at rest. This precluded ambulatory pulse oximetry. The decision was made to admit for further evaluation and treatment. Plan of care discussed with patient. He agrees to admission at [facility] for further evaluation and treatment. Case discussed with hospitalist Dr. Brooks who accepts admission to observation at 12:27 PM. Portions of this note were created with voice recognition technology. There may be grammatical, spelling, punctuation or sound alike errors Complexity of problem addressed is moderate acute complicated. No critical care time. Complex of data reviewed and analyzed is extensive. Test ordered test reviewed results analyzed and correlated clinically with history and physical exam. Management discussed with hospitalist who accepts admission to observation. Risk of complication and or risk of morbidity/mortality of patient management is high. Patient requires further evaluation and treatment of hypoxia and shortness of breath. Vital stable. Time spent admit patient is approximately 15 to 20 minutes. Plan of care established for shared decision making. No social determinants of health present to impede follow-up. Portions of this note were created with voice recognition technology. There may be grammatical, spelling, punctuation or sound alike errors 05/21/24 00:39 Counseled pt/family regarding: diagnosis, need for follow-up, rad results - Departure Departure Disposition: Observation Clinical Impression: Influenza A, SOB (shortness of breath), Exertional dyspnea Condition: Stable Critical Care Time: No Referrals: STEVE FARFAN, [Primary Care Provider] - Follow up/PCP as directed
[2024-05-20] MEDS ORDERED: Sterile H2O 10 ml IJ ONE (21:47)
[2024-05-20] MEDS ORDERED: solu-MEDROL ONE (21:47)
[2024-05-20] MEDS: solu-MEDROL 125 MG, Sterile H2O 10 ml 2 ML IV ONE (21:48)
[2024-05-20 21:55] LABS: Absolute Neutrophil Ct (ANC) 3.83 x10^3/uL (1.78-5.38); BASOPHIL % 0.2 % (0.2-1.2); Basophil (Absolute #) 0.01 x10^3/uL (0.01-0.08); Eosinophil (Absolute #) 0 x10^3/uL (0.04-0.54); Hematocrit 43.2 % (40.1-51.0); Hemoglobin 14.4 g/dL (13.7-17.5); IMMATURE GRAN # 0.01 x10^3u/L (0.001-0.031); IMMATURE GRAN % 0.2 % (0.001-0.429); Lymphocyte (Absolute #) 0.27 x10^3/uL (1.32-3.57); Lymphocytes % 5.5 % (21.8-53.1); Mean Cell Volume 88.7 fL (79.0-92.2); Mean Corpuscular Hemoglobin 29.6 pg (25.7-32.2); Mean Corpuscular Hgb Concent. 33.3 g/dL (32.3-36.5); Mean Platelet Volume 10.3 fL (9.4-12.4); Monocyte (Absolute #) 0.83 x10^3/uL (0.30-0.82); Monocytes % 16.8 % (5.3-12.2); Neutrophil % 77.3 % (34.0-67.9); Platelet Count 217 x10^3/uL (163-337); Red Blood Count 4.87 x10^6/uL (4.63-6.08); Red Cell Distribution Width 12.5 % (11.6-14.4)
[2024-05-20] MEDS ORDERED: DUONEB 0.5-3 MG/3 ml Neb IH ONE (22:01)
[2024-05-20 22:09] LABS: ALBUMIN 4.7 g/dL (3.5-5.0); ANION GAP 20.1 MEQ/L (5-15); BILIRUBIN,TOTAL 0.8 mg/dL (0.2-1.3); Calcium 9.7 mg/dL (8.4-10.2); Creatinine 1 1.23 mg/dL (0.66-1.25); EST GLOMERULAR FILTRATION RATE 64.8 ML/MIN; Potassium 4.5 mmol/L (3.5-5.1); Total Protein 7.4 g/dL (6.3-8.2)
[2024-05-20 22:33] LABS: INFLUENZA B NEGATIVE (NEGATIVE); RESPIRATORY SYNCTIAL VIRUS NEGATIVE (NEGATIVE); SARS-CoV-2 Xpert Express NEGATIVE (NEGATIVE)
[2024-05-20] MEDS: DUONEB 0.5-3 MG/3 ml Neb IH ONE (22:41)
[2024-05-20 22:59] LABS: INFLUENZA A POSITIVE (NEGATIVE)
[2024-05-20 23:55] LABS: Slide Review 1 YES
--- NOTE | 2024-05-21 | XRAY ---
CLINICAL HISTORY: sob, + dimer COMPARISON: none TECHNIQUE: Contiguous axial images were obtained from the neck base through the upper abdomen following intravenous administration of contrast material. If IV contrast material had not been administered, the likelihood of detecting abnormalities relevant to the patient's condition would have been substantially decreased. In addition, sagittal and coronal reconstructions were performed. CT scan was performed according to ALARA (as low as reasonably achievable). FINDINGS: Adequate contrast bolus without evidence of pulmonary embolism. The lungs are clear, with no focal areas of consolidation. Few subpleural cysts in superior segment of right lower lobe. Subpleural ground glassing in posterobasal segments of bilateral lower lobes. The central airways are patent. There are no pleural effusions. No pneumothorax is seen. No axillary, hilar, or mediastinal adenopathy is identified. The visualized thyroid is unremarkable. The heart, aorta, and pulmonary arteries are of normal size and configuration. No pericardial effusion is identified. Imaged portions of the upper abdomen are unremarkable. No aggressive appearing osseous lesions are identified. Sliding hiatus hernia is seen. IMPRESSION: 1. No evidence of pulmonary embolism. 2. Few subpleural cysts in superior segment of right lower lobe. 3. Subpleural ground glassing in posterobasal segments of bilateral lower lobes- Postural/perfusion related changes. 4. Sliding hiatus hernia Electronically Signed by: Trevor Carbajal MD. (05/20/2024 23:56:26 EST)
[2024-05-21] MEDS ORDERED: ROCEPHIN 2 GM/100 ML NACL 2 GM/100 ML IVPB IV ONE (00:34)
[2024-05-21] MEDS: ROCEPHIN 2 GM/100 ML NACL 2 GM/100 ML IVPB IV ONE (00:35)
[2024-05-21] MEDS ORDERED: Zithromax 500 MG/ 250 ML NaCl Premix 500 MG/250 ML IVPB IV ONE (01:11)
[2024-05-21] MEDS: Zithromax 500 MG/ 250 ML NaCl Premix 500 MG/250 ML IVPB IV STA (01:11)
[2024-05-21] MEDS ORDERED: MILK OF MAGNESIA 30 ML PO PRN (01:39)
[2024-05-21] MEDS ORDERED: Zofran 4 MG/2 ML VIAL IV PRN (01:39)
--- NOTE | 2024-05-21 02:05 | PCM.HP ---
History of Present Illness - Chief Complaint Chief Complaint: Influenza A, hypoxia Date: 05/21/24 History of Present Illness: is a 64 year old male with a history of asthma and tobacco use who presented to the ED with shortness of breath that started on the day of presentation. Patient states that he has had a cough for the past several days without hemoptysis. He denies chest pain no nausea vomiting or diaphoresis. The shortness of breath is worse with exertion and improved with rest. He denies any obvious sick contacts or fever. 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 He also reported a generalized headache. - Review of Systems Constitutional: No Symptoms Eyes: No Symptoms Ears, Nose, & Throat: No Symptoms Respiratory: Cough, Short Of Breath, Wheezing Cardiac: No Symptoms Abdominal/Gastrointestinal: No Symptoms Genitourinary Symptoms: No Symptoms Musculoskeletal: No Symptoms Skin: No Symptoms Neurological: Headache Psychological: No Symptoms Endocrine: No Symptoms Hematologic/Lymphatic: No Symptoms Immunological/Allergic: No Symptoms All Other Systems: Reviewed and Negative Medications & Allergies Home Medications: Home Medication List Fluticasone Propion/Salmeterol [Advair 100-50 Diskus] 100 disk PO BID 05/31/15 [History Confirmed 05/20/24] Albuterol Common Canister [Ventolin Common Canister] 1 puff IH DAILY PRN PRN 03/15/21 [History Confirmed 05/20/24] Montelukast Sodium 10 mg [Singulair 10 MG] 10 mg PO QPM 03/15/21 [History Confirmed 05/20/24] Allergies/Adverse Reactions: Allergies Allergy/AdvReac Type Severity Reaction Status Date / Time meperidine HCl [From Demerol] Allergy Muscle Verified 05/20/24 21:17 Aches - Past Medical History Past Medical History: Yes Neurological History: No Pertinent History ENT History: No Pertinent History Cardiac History: No Pertinent History Respiratory History: Asthma Endocrine Medical History: No Pertinent History Musculoskelatal History: Osteoarthritis GI Medical History: Diverticulitis, Polyps, Hernia, Esophageal Disorder History: No Pertinent History Pyscho-Social History: No Pertinent History Male Reproductive Disorders: No Pertinent History Comment: ADVAIR, SINGULARE, ALBUTERAL, FRACTURE OF C-SPINE AT AGE 17 - Past Surgical History Past Surgical History: Yes Neuro Surgical History: No Pertinent History Cardiac History: No Pertinent History Respiratory Surgery: No Pertinent History GI Surgical History: Hernia Repair Genitourinary Surgical Hx: No Pertinent History Musculskeletal Surgical Hx: Orthopedic Surgery Male Surgical History: No Pertinent History Other Surgical History: tear on colon repair, repair of shattered elbow right with bone graft from hip, egd with dilatation Significant Family History: no pertinent family hx - Social History Smoking Status: Light tobacco smoker How long have you smoked: 20 years Exposure to second hand smoke: Yes Alcohol: None Drug Use: none - Social Determinants of Health Will the patient participate in the screening: Declined to provide - Physical Exam Vital Signs: Vital Signs - 24 hr Pulse Resp BP BP Pulse Ox 05/21/24 01:00 80 19 141/71 96 05/21/24 00:45 96 05/21/24 00:30 82 19 138/68 96 05/21/24 00:00 90 15 140/64 91 L 05/20/24 23:30 71 28 H 131/68 92 L 05/20/24 23:20 80 15 146/78 05/20/24 23:00 139/74 05/20/24 22:30 79 18 140/83 05/20/24 22:24 75 20 98 05/20/24 22:00 82 18 146/80 97 05/20/24 21:37 96 05/20/24 21:18 76 11 L 146/64 146/64 96 General Appearance: mild distress, alert Neurologic Exam: alert, oriented x 3, cooperative, 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, normal mood/affect, nml cerebellar function Eye Exam: PERRL/EOMI, eyes nml inspection Ears, Nose, Throat Exam: normal ENT inspection Neck Exam: normal inspection, non-tender, supple, full range of motion Respiratory Exam: diminished breath sounds, wheezing Cardiovascular Exam: regular rate/rhythm, normal heart sounds Gastrointestinal/Abdomen Exam: soft, normal bowel sounds Back Exam: normal range of motion Extremity Exam: normal inspection, normal range of motion Skin Exam: normal color Results - Labs Lab/Micro Results: Lab Results-Last 24 Hours 05/20/24 05/20/24 05/20/24 Range/Units 21:41 21:41 21:41 WBC 5.0 (4.23-9.07) x10^3/uL RBC 4.87 (4.63-6.08) x10^6/uL Hgb 14.4 (13.7-17.5) g/dL Hct 43.2 (40.1-51.0) % MCV 88.7 (79.0-92.2) fL MCH 29.6 (25.7-32.2) pg MCHC 33.3 (32.3-36.5) g/dL RDW 12.5 (11.6-14.4) % Plt Count 217 (163-337) x10^3/uL MPV 10.3 (9.4-12.4) fL Gran % 77.3 H (34.0-67.9) % Immature Gran % (Auto) 0.2 (0.001-0.429) % Nucleat RBC Rel Count 0.0 (0.00-0.2) % Eos # (Auto) 0 L (0.04-0.54) x10^3/uL Immature Gran # (Auto) 0.01 (0.001-0.031) x10^3u/L Absolute Lymphs (auto) 0.27 L (1.32-3.57) x10^3/uL Absolute Monos (auto) 0.83 H (0.30-0.82) x10^3/uL Absolute Nucleated RBC 0.00 (0.00-0.012) x10^3u/L Lymphocytes % 5.5 L (21.8-53.1) % Monocytes % 16.8 H (5.3-12.2) % Eosinophils % 0.0 L (0.8-7.0) % Basophils % 0.2 (0.2-1.2) % Absolute Granulocytes 3.83 (1.78-5.38) x10^3/uL Basophils # 0.01 (0.01-0.08) x10^3/uL D-Dimer 1.26 H* (0.0-0.50) mg/L Sodium 137 (135-145) mmol/L Potassium 4.5 (3.5-5.1) mmol/L Chloride 101 (98-107) mmol/L Carbon Dioxide 20 L (22-30) mmol/L Anion Gap 20.1 H (5-15) MEQ/L BUN 26 H (9-20) mg/dL Creatinine 1.23 (0.66-1.25) mg/dL Estimated GFR 64.8 ML/MIN Glucose 99 (74-106) mg/dL Calcium 9.7 (8.4-10.2) mg/dL Total Bilirubin 0.80 (0.2-1.3) mg/dL AST 34 (17-59) U/L ALT 25 (0-50) U/L Alkaline Phosphatase 62 (38-126) U/L Troponin I (0.000-0.033) ng/mL Serum Total Protein 7.4 (6.3-8.2) g/dL Albumin 4.7 (3.5-5.0) g/dL Influenza Type A Ag (NEGATIVE) Influenza Type B Ag (NEGATIVE) RSV (PCR) (NEGATIVE) SARS-CoV-2 (PCR) (NEGATIVE) Slides for Path Review YES 05/20/24 05/20/24 Range/Units 21:45 21:55 WBC (4.23-9.07) x10^3/uL RBC (4.63-6.08) x10^6/uL Hgb (13.7-17.5) g/dL Hct (40.1-51.0) % MCV (79.0-92.2) fL MCH (25.7-32.2) pg MCHC (32.3-36.5) g/dL RDW (11.6-14.4) % Plt Count (163-337) x10^3/uL MPV (9.4-12.4) fL Gran % (34.0-67.9) % Immature Gran % (Auto) (0.001-0.429) % Nucleat RBC Rel Count (0.00-0.2) % Eos # (Auto) (0.04-0.54) x10^3/uL Immature Gran # (Auto) (0.001-0.031) x10^3u/L Absolute Lymphs (auto) (1.32-3.57) x10^3/uL Absolute Monos (auto) (0.30-0.82) x10^3/uL Absolute Nucleated RBC (0.00-0.012) x10^3u/L Lymphocytes % (21.8-53.1) % Monocytes % (5.3-12.2) % Eosinophils % (0.8-7.0) % Basophils % (0.2-1.2) % Absolute Granulocytes (1.78-5.38) x10^3/uL Basophils # (0.01-0.08) x10^3/uL D-Dimer (0.0-0.50) mg/L Sodium (135-145) mmol/L Potassium (3.5-5.1) mmol/L Chloride (98-107) mmol/L Carbon Dioxide (22-30) mmol/L Anion Gap (5-15) MEQ/L BUN (9-20) mg/dL Creatinine (0.66-1.25) mg/dL Estimated GFR ML/MIN Glucose (74-106) mg/dL Calcium (8.4-10.2) mg/dL Total Bilirubin (0.2-1.3) mg/dL AST (17-59) U/L ALT (0-50) U/L Alkaline Phosphatase (38-126) U/L Troponin I < 0.012 (0.000-0.033) ng/mL Serum Total Protein (6.3-8.2) g/dL Albumin (3.5-5.0) g/dL Influenza Type A Ag POSITIVE A (NEGATIVE) Influenza Type B Ag NEGATIVE (NEGATIVE) RSV (PCR) NEGATIVE (NEGATIVE) SARS-CoV-2 (PCR) NEGATIVE (NEGATIVE) Slides for Path Review - Radiology Impressions Radiology Exams & Impressions: Radiology Procedures Category Date Time Status CHEST WITH CONTRAST [CT] Stat Exams 05/20/24 22:20 Completed Assessment/Plan (1) Influenza A Current Visit: Yes Status: Acute Assessment & Plan: Tamiflu. Isolation. Likely triggered the patient's acute decompensation. Code(s): J10.1 - FLU DUE TO OTH IDENT INFLUENZA VIRUS W OTH RESP MANIFEST (2) Acute bronchitis Current Visit: Yes Status: Acute Assessment & Plan: Nebs, steroids, antibiotics. Wean O2 as tolerated. Mucinex for cough. Code(s): J20.9 - ACUTE BRONCHITIS, UNSPECIFIED (3) Acute respiratory failure with hypoxia Current Visit: Yes Status: Acute Assessment & Plan: Wean O2. PT eval for ambulatory oxygen assessment. Code(s): J96.01 - ACUTE RESPIRATORY FAILURE WITH HYPOXIA (4) Dehydration Current Visit: Yes Status: Acute Assessment & Plan: IV fluids. Monitor volume status. Code(s): E86.0 - DEHYDRATION Telemedicine Encounter - Telemedicine Encounter Telemedicine Encounter: "The entirety of this encounter was performed via Telemedicine" This visit was performed using real-time audio and video connection between my location and thepatients locationwith the assistance of a surrogateat the patients location. Written or verbal consent was obtained from the patient/guardian to perform this visit usingsynchronoustelemedicine technology. Any patient questions regarding the telemedicine interaction were answered.
[2024-05-21] MEDS: TYLENOL 325 MG PO PRN (02:54)
[2024-05-21] MEDS: Sodium Chloride 0.9% 1000 ML 1,000 ML IV SCH (02:55)
[2024-05-21] MEDS: DUONEB 0.5-3 MG/3 ml Neb IH SCH (05:32)
[2024-05-21] MEDS: Advair Hfa 115/21 Common canister IH SCH (05:41)
[2024-05-21 05:59] LABS: Absolute Neutrophil Ct (ANC) 3.23 x10^3/uL (1.78-5.38); BASOPHIL % 0.3 % (0.2-1.2); Basophil (Absolute #) 0.01 x10^3/uL (0.01-0.08); Eosinophil (Absolute #) 0 x10^3/uL (0.04-0.54); Hematocrit 42.2 % (40.1-51.0); Hemoglobin 13.9 g/dL (13.7-17.5); IMMATURE GRAN # 0.01 x10^3u/L (0.001-0.031); IMMATURE GRAN % 0.3 % (0.001-0.429); Lymphocyte (Absolute #) 0.22 x10^3/uL (1.32-3.57); Mean Cell Volume 90.2 fL (79.0-92.2); Mean Corpuscular Hemoglobin 29.7 pg (25.7-32.2); Mean Corpuscular Hgb Concent. 32.9 g/dL (32.3-36.5); Mean Platelet Volume 11.6 fL (9.4-12.4); Monocyte (Absolute #) 0.22 x10^3/uL (0.30-0.82); Neutrophil % 87.4 % (34.0-67.9); Platelet Count 210 x10^3/uL (163-337); Red Blood Count 4.68 x10^6/uL (4.63-6.08); Red Cell Distribution Width 12.7 % (11.6-14.4); White Blood Count 3.7 x10^3/uL (4.23-9.07)
[2024-05-21 06:42] LABS: Slide Review 1 YES
[2024-05-21 07:07] LABS: ANION GAP 21.6 MEQ/L (5-15); Creatinine 1 1.17 mg/dL (0.66-1.25); EST GLOMERULAR FILTRATION RATE 68.8 ML/MIN; Potassium 4.4 mmol/L (3.5-5.1)
[2024-05-21] MEDS ORDERED: Sterile H2O 10 ml IJ ONE (07:24)
[2024-05-21] MEDS ORDERED: solu-MEDROL ONE (07:24)
[2024-05-21] MEDS: solu-MEDROL 40 MG, Sterile H2O 10 ml 1 ML IV SCH (07:29)
[2024-05-21] MEDS: Tessalon Perles 100 MG PO PRN (09:23)
[2024-05-21] MEDS: Tamiflu 75MG Capsule PO SCH (09:24)
[2024-05-21] MEDS: Mucinex 600MG ER Tabs PO SCH (09:24)
[2024-05-21] MEDS: ENOXAPARIN SODIUM SQ SCH (09:24)
[2024-05-21] MEDS: Pepcid 20 MG PO SCH (09:24)
[2024-05-21] MEDS: Acidophilus TABLET PO SCH (09:24)
[2024-05-21] MEDS: Nicoderm CQ 21 MG TOP SCH (09:24)
[2024-05-21] MEDS ORDERED: SALMETEROL PO SCH (10:00)
[2024-05-21] MEDS ORDERED: [UNRECOGNIZED DRUG - OTHER] PO SCH (10:00)
[2024-05-21] MEDS ORDERED: FLUTICASONE PROPIONATE PO SCH (10:00)
[2024-05-21] MEDS: Sodium Bicarbonate 50 MEQ/50 ML VIAL*** 150 MEQ in Dextrose 5%/Water IV Soln. 1000 ML 1... IV SCH (10:36)
[2024-05-21] MEDS: BENADRYL 50 MG/ML IV ONE (13:28)
[2024-05-21] MEDS: FLUTICASONE-SALMETEROL 250-50 IH SCH (17:52)
[2024-05-21] MEDS: Compazine 10 MG/2 ML IV PRN (17:57)
[2024-05-21] MEDS: Singulair 10 MG PO SCH (22:05)
[2024-05-21] MEDS: ROCEPHIN 1 GM / 100 ML NaCl 1 GM/100 ML IVPB IV SCH (22:06)
[2024-05-22] MEDS: Zithromax 500 MG/ 250 ML NaCl Premix 500 MG/250 ML IVPB IV SCH (01:24)
[2024-05-22 05:44] LABS: Hemoglobin 13.4 g/dL (13.7-17.5); Mean Cell Volume 87.7 fL (79.0-92.2); Mean Corpuscular Hemoglobin 29.4 pg (25.7-32.2); Mean Corpuscular Hgb Concent. 33.5 g/dL (32.3-36.5); Mean Platelet Volume 11.1 fL (9.4-12.4); Platelet Count 201 x10^3/uL (163-337); Red Blood Count 4.56 x10^6/uL (4.63-6.08); Red Cell Distribution Width 12.5 % (11.6-14.4); White Blood Count 6.1 x10^3/uL (4.23-9.07)
[2024-05-22 07:40] LABS: ALBUMIN 3.9 g/dL (3.5-5.0); ANION GAP 13.3 MEQ/L (5-15); BILIRUBIN,TOTAL 0.4 mg/dL (0.2-1.3); Calcium 8.4 mg/dL (8.4-10.2); Creatinine 1 0.95 mg/dL (0.66-1.25); EST GLOMERULAR FILTRATION RATE 88.3 ML/MIN; Potassium 3.8 mmol/L (3.5-5.1); Total Protein 6.5 g/dL (6.3-8.2)
[2024-05-22 13:01] VITALS: BP 139/66; PULSE 80; RESP 18; TEMP 97.8; O2SAT 93
--- NOTE | 2024-05-22 13:01 | PCM.DS ---
Discharge Summary Date of Admission: 05/21/24 01:29 Date of Discharge: 05/22/24 Admitting Physician: MARCI QURESHI MD Primary Care Provider: STEVE FARFAN DO Allergies Allergies meperidine HCl [From Demerol] Allergy (Verified 05/22/24 10:40) Muscle Aches tightness of muscles Hospital Summary - Hospital Course Hospital Course: is a 64 year old male with a history of asthma and tobacco use who presented to the ED with shortness of breath that started on the day of presentation 05/21/24. Patient states that he has had a cough for the past several days without hemoptysis. He denies chest pain no nausea vomiting or diaphoresis. The shortness of breath is worse with exertion and improved with rest. He denies any obvious sick contacts or fever. 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 He also reported a generalized headache. He tested + for flu A inER and started on tamiflu. Today he is room air 94%. CO2 29 and bicarb gtt stopped. D-dimer 1.[address] negative for PE but showed BLL pneumonia. Pt treated with ceftriaxone, azithromycin, duonebs, and tessalon. He is feeling much better today and wants to d/c. He was having some difficulty swallowing yesterday and modified barium swallow ordered. Barium swallow was unable to be done IP as there was no radiologist avaiable yesterday or today. This is scheduled for OP next . He also has an upcoming EGD/ Colonoscopy scheduled. He denies CP, SOB, abd. pain, N/V/D. it was recommended he eats a doft diet until he has his testing OP. - Vitals & Intake/Output Vital Signs: Vital Signs Temperature 98.6 F 05/22/24 08:00 Pulse Rate 85 05/22/24 08:00 Respiratory Rate 20 05/22/24 08:00 Blood Pressure 139/67 05/22/24 08:00 O2 Sat by Pulse Oximetry 90 L 05/22/24 08:00 Intake & Output: Intake & Output 05/20/24 05/21/24 05/22/24 05/23/24 11:59 11:59 11:59 11:59 Intake Total 700 3833 Output Total 500 2050 Balance 200 1783 Weight 77.8 kg - Lab Result Diagrams: 05/22/24 04:34 05/22/24 04:34 Lab Results-Last 24 Hrs: Lab Results-Last 24 Hours 05/22/24 05/22/24 Range/Units 04:34 04:34 WBC 6.1 (4.23-9.07) x10^3/uL RBC 4.56 L (4.63-6.08) x10^6/uL Hgb 13.4 L (13.7-17.5) g/dL Hct 40.0 L (40.1-51.0) % MCV 87.7 (79.0-92.2) fL MCH 29.4 (25.7-32.2) pg MCHC 33.5 (32.3-36.5) g/dL RDW 12.5 (11.6-14.4) % Plt Count 201 (163-337) x10^3/uL MPV 11.1 (9.4-12.4) fL Sodium 141 (135-145) mmol/L Potassium 3.8 (3.5-5.1) mmol/L Chloride 102 (98-107) mmol/L Carbon Dioxide 29 (22-30) mmol/L Anion Gap 13.3 (5-15) MEQ/L BUN 22 H (9-20) mg/dL Creatinine 0.95 (0.66-1.25) mg/dL Estimated GFR 88.3 ML/MIN Glucose 167 H (74-106) mg/dL Calcium 8.4 (8.4-10.2) mg/dL Total Bilirubin 0.40 (0.2-1.3) mg/dL AST 41 (17-59) U/L ALT 25 (0-50) U/L Alkaline Phosphatase 48 (38-126) U/L Serum Total Protein 6.5 (6.3-8.2) g/dL Albumin 3.9 (3.5-5.0) g/dL Micro Results-Entire Visit: Microbiology 05/20/24 21:51 Blood Culture - Preliminary Blood 05/20/24 21:41 Blood Culture - Preliminary Blood - Radiology Exams Ordered Rad Exams-Entire Visit: Radiology Procedures Category Date Time Status CHEST WITH CONTRAST [CT] Stat Exams 05/20/24 22:20 Completed - Procedures and Test Procedures and Tests throughout Hospitalization: Therapy Orders & Screens 05/20/24 22:19 Respiratory Therapy Consult ONCE Comment: Reason For Exam: 05/20/24 22:23 Respiratory Therapy Assessment DAILY Comment: 05/21/24 01:39 PT Eval & Treat (MD Order) ONCE Reason for Eval:: Ambulatory oxygen assessment Diagnosis: Influenza A, hypoxia 05/21/24 02:12 Respiratory MDI BID Comment: Diagnosis: Influenza A, hypoxia 05/21/24 05:34 Oxygen Nasal Cannula 2 lpm Comment: Diagnosis: Influenza A, hypoxia Discharge Exam General Appearance: no apparent distress, alert Neurologic Exam: alert, oriented x 3, cooperative, normal mood/affect, nml cerebellar function, sensation nml, No motor deficits Eye Exam: PERRL, EOMI, eyes nml inspection Ears, Nose, Throat Exam: normal ENT inspection, pharynx normal, moist mucous membranes Neck Exam: normal inspection, non-tender, supple, full range of motion Respiratory Exam: normal breath sounds, lungs clear, No respiratory distress Cardiovascular Exam: regular rate/rhythm, normal heart sounds Gastrointestinal/Abdomen Exam: soft, No tenderness, No mass Male Genitalia Exam: deferred Rectal Exam: deferred Back Exam: normal inspection, normal range of motion, No CVA tenderness, No vertebral tenderness Extremity Exam: normal inspection, normal range of motion Skin Exam: normal color, warm, dry Final Diagnosis/Problem List - Final Discharge Diagnosis/Problem (1) Influenza A Current Visit: Yes Status: Acute Assessment & Plan: Tamiflu. Isolation. Likely triggered the patient's acute decompensation. Code(s): J10.1 - FLU DUE TO OTH IDENT INFLUENZA VIRUS W OTH RESP MANIFEST (2) Acute respiratory failure with hypoxia Current Visit: Yes Status: Resolved Assessment & Plan: - room air 94% - CBC, CMP reviewed Code(s): J96.01 - ACUTE RESPIRATORY FAILURE WITH HYPOXIA (3) Acute bronchitis Current Visit: Yes Status: Acute Assessment & Plan: Nebs, steroids, antibiotics. Wean O2 as tolerated. Mucinex for cough. Code(s): J20.9 - ACUTE BRONCHITIS, UNSPECIFIED (4) Dehydration Current Visit: Yes Status: Resolved Assessment & Plan: - resolved Code(s): E86.0 - DEHYDRATION (5) Dysphagia Current Visit: No Status: Acute Assessment & Plan: - F/U OP for modified barium swallow and EGD as scheduled. Code(s): R13.10 - DYSPHAGIA, UNSPECIFIED (6) Smoker Current Visit: Yes Status: Chronic Assessment & Plan: - advised cessation - nicotine patch Code(s): F17.200 - NICOTINE DEPENDENCE, UNSPECIFIED, UNCOMPLICATED - Discharge Discharge Date: 05/22/24 Disposition: Home, Self-Care Condition: Stable Prescriptions: New Oseltamivir 75 mg [Tamiflu 75MG Capsule] 75 mg PO BID 5 Days #10 cap Continue Fluticasone Propion/Salmeterol [Advair 100-50 Diskus] 100 disk PO BID Montelukast Sodium 10 mg [Singulair 10 MG] 10 mg PO QPM Albuterol Common Canister [Ventolin Common Canister] 1 puff IH DAILY PRN PRN PRN Reason: Shortness Of Breath Atorvastatin Calcium 10 mg PO DAILY Instructions: Flu in adults - Discharge instructions, Dysphagia in adults - Discharge instructions Additional Instructions: MODIFIED BARIUM SWALLOW IS SCHEDULED FOR 05/27/24 AT 11:00 AM. EGD AND COLONOSCOPY IS ALSO SCHEDULED FOR 06/22/[address] WO[address]RUFF[address] DR. WOODRUFF'S OFFICE WILL CALL YOU FOR PRE-OPERATIVE INSTRUCTIONS. IF YOU DO NOT HEAR FROM THE OFFICE BY THEN GIVE THEM A CALL. Follow up with: DELMA WOODRUFF [ACTIVE STAFF] - 05/28/24 1:45 pm Forms: Discharge Instructions
== END 2024-05-22 13:32 | disposition home or self-care (01) ==
LOC: ED 21:12 → MED SURG 05-21 01:29
PROVIDERS: ADMIT Internal Medicine; ATTEND Internal Medicine
DX: J10.1 Influenza due to other identified influenza virus with other respiratory manifestations (principal); J96.01 Acute respiratory failure with hypoxia; J20.9 Acute bronchitis, unspecified; E86.0 Dehydration; R13.10 Dysphagia, unspecified; F17.200 Nicotine dependence, unspecified, uncomplicated; Z79.899 Other long term (current) drug therapy; J45.909 Unspecified asthma, uncomplicated; R51.9 Headache, unspecified
CPT/HCPCS: 0241U; 36415; 71260; 80048; 80053; 84484; 85025; 85027; 85379; 87040; 93005; 93041; 93268; 94640; 94760; 96374; 99285; G0378; Q3014; J0456; J0696; J1200; J1650; J2919; A9270-GY